=== PATIENT | female | born 1955 | race Caucasian/White ===

== ENCOUNTER → 2020-05-24 | Outpatient (CLI) | payer OTHER, MEDICARE ==
[~2020-05-24] MED LIST: AMBIEN 10 MG TA10 MG PO; AZITHROMYCIN 2250 MG PO; BACTRIM DS TAB1 EACH PO; BUDEPRION SR150 MG PO; BUPROPION PO; DARVOCET-N 1001 EACH PO; IBUPROFEN 800800 M1 PO; LEVOTHYROXINE0.05 MG PO; LEXAPRO 10 MG T10 MG PO; LORATIDINE 10 M10 M1 PO; MULTI-DAY VITA1 EACH PO; NORCO 5-325 TA1 EACH PO; PANTOPRAZOLE SO40 M1 PO; PRAVASTATIN SOD20 MG PO; PRILOSEC 10MG C10 M1 PO; SYNTHROID PO
== END ==
LOC: SJCVCIMAG 12:20
PROVIDERS: ATTEND Hospitalist
DX: I51.7 Cardiomegaly (principal); R94.31 Abnormal electrocardiogram [ECG] [EKG]